=== PATIENT | male | born 1985 | race Caucasian/White ===

== ENCOUNTER → 2020-09-13 15:12 | Outpatient (BNVA) | payer BC, MEDICAID, SELFPAY | PROVIDERS: PCP Nurse Practitioner Family; Referring Provider Nurse Practitioner Family; Visit Provider Nurse Practitioner Family | DX: N39.0 Urinary tract infection, site not specified (principal); R39.82 Chronic bladder pain | CPT/HCPCS: 81003; 87086 ==

== ENCOUNTER → 2020-11-14 09:12 | Outpatient (BNVA) | payer BC, SELFPAY | PROVIDERS: PCP Nurse Practitioner Family; Visit Provider Urology | DX: N39.0 Urinary tract infection, site not specified (principal) | CPT/HCPCS: 81003 ==

== ENCOUNTER 2021-01-05 06:27 | Emergency (ER) | payer BC, MEDICAID, SELFPAY ==
[2021-01-05 06:30] VITALS: BP 134/64; PULSE 87; RESP 16; TEMP 36.6; O2SAT 99; BMI 36.6
--- NOTE | 2021-01-05 06:32 | W.ED.ABDPA2 ---
HPI - Abdominal Pain General: Chief Complaint: Abdominal Pain Stated Complaint: Abdominal Pain Time Seen by Provider: 01/05/21 06:29 History of Present Illness: HPI narrative: Ms Chang is a 35-year-old lady without significant past medical history presents emergency department due to recurrent abdominal pain. Symptom onset was without specific known provoking factor approximately 1 month ago. Initially she had epigastric pain however at times it migrates to the right upper quadrant. She seen her primary care provider and was trialed on PPI which has not provided significant relief. She has previously been evaluated at [facility] without obvious explanation for her symptoms. She has been referred for outpatient HIDA scan. She presents today due to more consistent and worse pain more in the right upper quadrant. Quality is sharp and aching. There is mild associated nausea but no vomiting. No other abdominal symptoms. She does have a history of tubal ligation, no other abdominal surgeries. No other known specific provoking, exacerbating, or relieving factors discussed. Review of Systems General: Reports: 10 or more systems reviewed and unremarkable except in HPI and below PFSH ED PFSH: Medical History Recurrent UTI Surgical History History of tubal ligation Family History Grandfather Cancer Social History Alcohol intake: current Alcohol intake frequency: holidays/special occasions only Marital status: Current occupational status: employed Physical Exam Narrative: EXAM NARRATIVE: GENERAL/CONSTITUTIONAL - well-appearing. Uncomfortable due to abdominal pain Eyes - PERRL, no conjunctival injection ENMT - Atraumatic external nose and ears. Moist mucous membranes NECK - supple. trachea midline CARDIOVASCULAR - regular rate and rhythm. RESPIRATORY -clear to auscultation bilaterally. No retractions or accessory muscle use. ABDOMEN/GI - tenderness palpation in the right upper quadrant, negative Barney's. No evidence of remote peritonitis or tenderness to percussion. MSK - Extremities without obvious deformity or tenderness to palpation SKIN - Warm, Dry NEURO - alert and appropriately oriented. Moves all extremities equally. Course ED course: - Patient was seen and evaluated by me at bedside - Patient placed on cardiac monitors, IV access obtained - Initial evaluation notable for abdominal exam as noted above, nontoxic. Uncomfortable. -Symptom treatment ordered - Labs notable for No leukocytosis. Transaminases and lipase normal. - Imaging notable for cholelithiasis without evidence of cholecystitis, common bile duct upper limits of normal. Given normal transaminases and lipase low clinical suspicion for stone in the bile duct - Discussed case with surgery on-call, no indication for pursuing HIDA scan prior to surgeon evaluation - Upon serial reexamination after treatment the patient was improved with symptomatic treatment - Based on patient history, evaluation, labs, and imaging as interpreted the most likely cause of the patient's condition is symptomatic cholelithiasis - The results of ED evaluation were discussed with the patient including prescriptions and/or symptomatic cares (if applicable) including appropriate and responsible use, followup plan, and return precautions. The patient verbalized understanding and felt safe for discharge. - Patient discharged in satisfactory condition. Vital Signs: Vital signs: Vital Signs Temperature 97.9 F 01/05/21 06:30 Pulse Rate 77 01/05/21 10:17 Respiratory Rate 17 01/05/21 11:12 Blood Pressure 126/60 01/05/21 11:12 Pulse Oximetry 100 01/05/21 11:12 MDM - Abdominal Pain Medical Records: Attestation: I reviewed the patient's medical records. Lab Data: Attestation: I reviewed the patient's lab results. Labs: Lab Results 01/05/21 01/05/21 01/05/21 06:56 06:56 07:16 WBC 6.7 10^3/uL 10^3/ uL (4.0-10.0) RBC 4.82 10^6/uL 10^6 /uL (4.1-5.3) Hgb 14.1 g/dL g/dL (11.5-15.3) Hct 41.3 % % (37.0-47.0) MCV 85.7 fl fl (81-99) MCH 29.3 pg pg (28.0-34.0) MCHC 34.1 g/dL g/dL (30.0-36.0) RDW 11.6 % L % (12.1-15.1) Plt Count 228 10^3/cmm 10^3 /cmm (130-400) MPV 10.6 fL H fL (7.4-10.4) Neut % (Auto) 69.0 % % Lymph % (Auto) 23.4 % % [place] % (Auto) 5.8 % % Eos % (Auto) 0.9 % % Baso % (Auto) 0.6 % % Neut # (Auto) 4.64 10^3/uL 10^3 /uL (1.8-7.7) Lymph # (Auto) 1.6 10^3/uL 10^3/ uL (0.8-4.8) [place] # (Auto) 0.4 10^3/uL 10^3/ uL (0.2-0.9) Eos # (Auto) 0.1 10^3/uL 10^3/ uL (0.0-0.8) Baso # (Auto) 0.0 10^3/uL 10^3/ uL (0.0-0.1) Nucleated RBC % (a uto) 0 % % Nucleated RBCs # 0.0 /100WBC /100W BC Sodium Potassium Chloride Carbon Dioxide Anion Gap BUN Creatinine GFR Calculation Glucose Calculated Osmolal ity Calcium Total Bilirubin AST ALT Alkaline Phosphata se Total Protein Albumin Globulin Lipase HCG, Qual Negative (Negative) Urine Color Yellow (Yellow) Urine Appearance Sl hazy (CLEAR) Urine pH 6 (5-7) Ur Specific Gravit y 1.020 (1.005-1.030) Urine Protein Neg (Negative) Urine Glucose (UA) Norm (Normal) Urine Ketones Negative (Negative) Urine Blood Neg (Negative) Urine Nitrate Negative (Negative) Urine Bilirubin 1+ H (Negative) Urine Urobilinogen 1 mg/dL H mg/dL (Negative) Ur Leukocyte Carmen ase Negative (Negative) Urine RBC None /hpf /hpf (0-2) Urine WBC 0-4 /hpf H /hpf (0-5) Ur Squamous Epith Cells 15-25 /hpf H /hpf (0-5) Amorphous Sediment Not Reportable Urine Bacteria 2+ /hpf H /hpf (NONE) Urine Mucus 2+ /hpf /hpf 01/05/21 07:16 WBC RBC Hgb Hct MCV MCH MCHC RDW Plt Count MPV Neut % (Auto) Lymph % (Auto) [place] % (Auto) Eos % (Auto) Baso % (Auto) Neut # (Auto) Lymph # (Auto) [place] # (Auto) Eos # (Auto) Baso # (Auto) Nucleated RBC % (a uto) Nucleated RBCs # Sodium 137 mmol/L mmol/L (136-145) Potassium 3.9 mmol/L mmol/L (3.5-5.1) Chloride 101 mmol/L mmol/L (98-107) Carbon Dioxide 26 mmol/L mmol/L (22-29) Anion Gap 13.9 (5-19) BUN 8 mg/dL mg/dL (6-20) Creatinine 0.5 mg/dL mg/dL (0.5-0.9) GFR Calculation 142.1 mL/min H mL /min (90-130) Glucose 96 mg/dL mg/dL (65-115) Calculated Osmolal ity 282 mOsm/kg L mOs m/kg (285-295) Calcium 9.2 mg/dL mg/dL (8.5-10.5) Total Bilirubin 0.4 mg/dL mg/dL (0.15-1.2) AST 16 U/L U/L (0-32) ALT 19 U/L U/L (0-33) Alkaline Phosphata se 111 IU/L H IU/L (35-105) Total Protein 7.1 g/dL g/dL (6.6-8.7) Albumin 4.4 g/dL g/dL (3.5-5.2) Globulin 2.7 g/dL g/dL (1.3-4.6) Lipase 16 U/L U/L (13-60) HCG, Qual Urine Color Urine Appearance Urine pH Ur Specific Gravit y Urine Protein Urine Glucose (UA) Urine Ketones Urine Blood Urine Nitrate Urine Bilirubin Urine Urobilinogen Ur Leukocyte Carmen ase Urine RBC Urine WBC Ur Squamous Epith Cells Amorphous Sediment Urine Bacteria Urine Mucus Discharge Plan Discharge Patient Disposition: Home Clinical Impression: Symptomatic cholelithiasis Condition: Stable Prescriptions: New ondansetron 4 mg tablet,disintegrating 4 mg PO TID PRN (Reason: nausea and vomiting) 5 Days Qty: 15 RF: 0 oxycodone 5 mg tablet 5 mg PO Q4H PRN (Reason: pain) Qty: 20 RF: 0 No Action nitrofurantoin monohyd/m-cryst [Macrobid] 100 mg capsule 100 mg PO BID Qty: 60 RF: 2 Discharge Orders: Discharge ED (Routine); Ordered 01/05/21 Ordered By: Lm Clarke Referrals: Lisa De La Vega ELEVATOR REPAIRER APPRENTICE [Primary Care Provider] - Discharge Diet: Advance as tolerated and Low Fat Discharge Activity: Resume usual activity Patient Instructions: Gallstones (ED), Opioid Safety Activity Restrictions/Additional Instructions: Thank you for visiting the emergency department. You were seen and evaluated for abdominal pain. You were found to have gallstones and biliary sludge without other evidence of cholecystitis. This still is likely causing your symptoms. This requires outpatient follow-up with surgery. Please follow-up with surgery and your primary care provider. Please return to the emergency department for worsening symptoms or anything else that you're concerned about and feel needs emergency department evaluation. Coding Level of Care Code ED Technology Assistant for Ann Marie Coronado
[2021-01-05 06:54] VITALS: BP 133/74; PULSE 72; RESP 17; O2SAT 100
--- NOTE | 2021-01-05 07:05 | USR_ITS ---
PROCEDURE INFORMATION: Exam: US Abdomen, Limited; Right Upper Quadrant Exam date and time: 01/05/2021 7:05 AM Age: 35 years old Clinical indication: Abdominal pain; Tenderness; Right upper quadrant (ruq); Additional info: Ruq, biliary TECHNIQUE: Imaging protocol: US abdomen. Real time ultrasound with image documentation. Limited exam focused on the right upper quadrant. COMPARISON: No relevant prior studies available. FINDINGS: Liver: Normal. No masses. Gallbladder: Intraluminal sludge interspersed with shadowing gallstones noted. A gallstone is noted at the gallbladder neck. No gallbladder wall thickening, distention, or pericholecystic fluid. Some general tenderness in the region of the right upper abdomen with no definite sonographic Barney sign according to performing technologist. Common bile duct: The common bile duct measures 6 mm at the upper limits of normal. Pancreas: Visualized pancreas is unremarkable. Right kidney: Normal. No mass. No hydronephrosis. US/US abdomen limited 35546 IMPRESSION: Sludge and cholelithiasis including a small stone at the gallbladder neck. No specific sonographic findings of acute cholecystitis. Radiation Dose CTDIVOL = (mGy): DLP = (mGy-cm)
[2021-01-05] MEDS: morphine 4 mg/mL SDV 1 mL IVP (07:13)
[2021-01-05] MEDS: ondansetron 2 mg/ML SDV 2 mL 4 MG IVP (07:13)
[2021-01-05 07:35] LABS: Basophils % 0.6 %; Eosinophils # 0.1 10^3/uL (0.0-0.8); Eosinophils % 0.9 %; Hematocrit 41.3 % (37.0-47.0); Hemoglobin 14.1 g/dL (11.5-15.3); Lymphocytes # 1.6 10^3/uL (0.8-4.8); Lymphocytes % 23.4 %; Mean Corpuscular HGB Conc 34.1 g/dL (30.0-36.0); Mean Corpuscular Hemoglobin 29.3 pg (28.0-34.0); Mean Corpuscular Volume 85.7 fl (81-99); Mean Platelet Volume 10.6 fL (7.4-10.4); Monocytes # 0.4 10^3/uL (0.2-0.9); Monocytes % 5.8 %; Neutrophils # 4.64 10^3/uL (1.8-7.7); Nucleated Red Blood Cells % 0 %; Platelet Count 228 10^3/cmm (130-400); Red Blood Count 4.82 10^6/uL (4.1-5.3); Red Cell Distribution Width 11.6 % (12.1-15.1); White Blood Count 6.7 10^3/uL (4.0-10.0)
[2021-01-05 07:42] LABS: HCG Qualitative Urine. Negative (Negative)
[2021-01-05 08:02] LABS: Alanine Aminotransferase 19 U/L (0-33); Albumin Level 4.4 g/dL (3.5-5.2); Alkaline Phosphatase 111 IU/L (35-105); Aspartate Amino Transferase 16 U/L (0-32); Blood Urea Nitrogen 8 mg/dL (6-20); Calcium 9.2 mg/dL (8.5-10.5); Carbon Dioxide 26 mmol/L (22-29); Chloride 101 mmol/L (98-107); Globulin 2.7 g/dL (1.3-4.6); Glomerular Filtration Rate 142.1 mL/min (90-130); Glucose 96 mg/dL (65-115); Lipase 16 U/L (13-60); Osmolality Calculated 282 mOsm/kg (285-295); Sodium 137 mmol/L (136-145); Total Bilirubin 0.4 mg/dL (0.15-1.2); Total Protein 7.1 g/dL (6.6-8.7)
[2021-01-05 08:05] LABS: Add Urine Microscopic? YES; Bacteria Urine 2+ /hpf; Bilirubin Urine 1+ (Negative); Blood Urine Neg (Negative); Glucose Urine UA Norm (Normal); Ketones Urine Negative (Negative); Leukocyte Esterase Urine Negative (Negative); Mucus Urine 2+ /hpf; Nitrate Urine Negative (Negative); Protein Urine Neg (Negative); Squamous Epithelial Cell Urine 15-25 /hpf (0-5); Urine Appearance SL Hazy (CLEAR); Urine Color Yellow (Yellow); Urobilinogen Urine 1 mg/dL (Negative); WBC Urine 0-4 /hpf (0-5); pH Urine 6 (5-7)
[2021-01-05 08:07] LABS: Add Urine Culture? No
[2021-01-05 08:09] LABS: Anion Gap 13.9 (5-19); Potassium 3.9 mmol/L (3.5-5.1)
[2021-01-05 08:21] VITALS: RESP 16; O2SAT 98
[2021-01-05 10:17] VITALS: BP 126/60; PULSE 77; RESP 16; O2SAT 100
[2021-01-05 11:12] VITALS: BP 126/60; RESP 17; O2SAT 100
--- NOTE | 2021-01-07 11:24 | DCPLANNER ---
hotel service manager had message to schedule a follow up appointment for patient with general surgery. hotel service manager emailed patients information to both Teresa and Emily at [facility] General Surgery / ENT clinic. Patients information will be printed and reviewed. Clinic will call patient with appointment information.
--- NOTE | 2021-01-08 16:01 | DCPLANNER ---
Patient had a follow up appointment scheduled for 01.08.[address] Young at general surgery - patient did attend appointment.
== END 2021-01-05 11:14 | disposition home or self-care (01) ==
PROVIDERS: Emergency Provider Emergency Medicine; PCP Nurse Practitioner Family
DX: K80.20 Calculus of gallbladder without cholecystitis without obstruction (principal)
CPT/HCPCS: 76705; 80053; 81001; 81025; 83690; 85025; 96374; 96375; 99284; J2270; J2405

== ENCOUNTER → 2021-01-09 10:55 | Outpatient (BNVA) | payer BC, SELFPAY | PROVIDERS: PCP Nurse Practitioner Family; Visit Provider Urology | DX: N39.0 Urinary tract infection, site not specified (principal) | CPT/HCPCS: 81003 ==

== ENCOUNTER → 2021-01-11 08:34 | Outpatient (BNVA) | payer BC, SELFPAY | PROVIDERS: PCP Nurse Practitioner Family; Visit Provider Surgery | DX: Z20.822 Contact with and (suspected) exposure to COVID-19 (principal) | CPT/HCPCS: 87635 ==

== ENCOUNTER 2021-01-16 07:56 | Day surgery (SDC) | payer BC, MEDICAID, SELFPAY ==
[2021-01-15 15:53] VITALS: BMI 37.4
[2021-01-16] VITALS (10 sets, daily range): BP systolic 104–127; BP diastolic 57–76; PULSE 61–85; RESP 14–18; TEMP 36.1–36.7; O2SAT 96–100
[2021-01-16] MEDS: sodium chloride 0.9% 1,000 ML 30 ML IV (08:27)
[2021-01-16 08:31] LABS: OR HCG Qualitative Urine Negative (Negative)
--- NOTE | 2021-01-16 08:44 | W.PM.OPSUD ---
Surgery/Procedure H&P Update DATE OF PROCEDURE: January 16, 2021 DATE H&P PERFORMED: 01/08/21 H&P UPDATE INFORMATION: I have reviewed H&P completed within last 30 days, I have examined patient prior to procedure and No changes to prior documentation PREOP DIAGNOSIS: Cholelithiasis PLANNED PROCEDURE: Operation Date: 01/16/21 09:25 Proposed Procedures p Laparoscopic Cholecystectomy 29174 K80.20(Not Applicable) - Catrachito Young MD
--- NOTE | 2021-01-16 08:48 | ANES.PREANE2 ---
Pre-Anesthetic Assessment Pre-Anesthetic Assessment: Height/Weight: Height 1.65 m Weight 102.058 kg Temp Pulse Resp BP Pulse Ox 97.7 F 64 16 127/57 99 01/16/21 08:17 01/16/21 08:17 01/16/21 08:17 01/16/21 08:17 01/16/21 08:17 Preop Diagnosis: Cholelithiasis Proposed Procedure: Operation Date: 01/16/21 09:25 Proposed Procedures p Laparoscopic Cholecystectomy 22327 K80.20(Not Applicable) - Catrachito Young MD Was Beta Alonso taken within 24 hours: N/A Was Clonidine taken within 24 hours: N/A Last intake: Intake Last Liquid Date 01/15/21 Last Liquid Time 19:30 Last Solid Date 01/15/21 Last Solid Time 19:30 Social: Social History: No alcohol and No tobacco Exam: Pre-Anes Outpt Exam: alert, oriented x 3, clear to auscultation bilaterally and regular rate & rhythm Airway: Submandibular: WNL Cervical ROM: WNL MP: 2 Dentition: Full History/ROS: No significant history except as noted Metabolic: Metabolic: Morbid obesity Anesthetic Plan: ASA status: 2 Anesthesia: General Risk of > 500 ml blood loss (7ml/kg in children): No Meds/Allergies Current Medications: Current Medications Generic Name Dose Route Start Last Admin Trade Name Freq PRN Reason Stop Dose Admin Sodium Chloride 1,000 mls @ 30 ml s/hr 01/16/21 08:15 01/16/21 08:27 Sodium Chloride 0.9% IV 01/17/21 08:14 30 mls/hr .Q24H ZA Administration PFSH Anesthesia PFSH: Medical History Recurrent UTI Surgical History History of tubal ligation Family History Grandfather Cancer Social History Alcohol intake: current Alcohol intake frequency: holidays/special occasions only Marital status: Current occupational status: employed Female Reproductive History: Date of last menstrual period: 12/28/20 Data Anesthesia Other Labs: Laboratory Results - last 48 hr 12/01/21 08:11 Urine HCG, Qual Negative Cardiac Studies: No Data to Display
--- NOTE | 2021-01-16 09:39 | PM.OP ---
Operative Report Date of procedure: January 16, 2021 Pre-op Diagnosis: Cholelithiasis Post-op diagnosis: same Procedure Done: Laparoscopic cholecystectomy Specimens removed/disposition: Gallbladder Surgeon: Catrachito Young Anesthesia: General Condition: stable Disposition: PACU Procedure: The patient was taken to the operating room and was intubated under general anesthesia. After the antibiotic had been administered, the abdomen was prepped and draped in a sterile manner. Using a #15 blade, a 1 centimeter infraumbilical curvilinear incision was made and using an open Holley technique the peritoneal cavity was entered. A 10 millimeter port was placed and 15 millimeters of pneumoperitoneum was created. A 10 millimeter, 30 degrees scope was then introduced. Three 5 millimeter ports were placed in the epigastric, midclavicular and the anterior axillary line two fingerbreadths below the costal margin on the right side under the direct visualization. Ratcheted forceps were introduced into the lateral most port and was used to retract the fundus of the gallbladder cephalad and using forceps the infundibulum of the gallbladder was retracted laterally. Using L-hook cautery the peritoneum overlying the Calot's triangle was opened medially and laterally until the cystic duct and the anterior and posterior branch of cystic artery were skeletonized. Dissection was carried along the body of the gallbladder and after ensuring critical view of safety, 4 clips applied on the cystic duct and 3 clips applied on the anterior and posterior branch of cystic artery and cut leaving, 3 clips on the remaining portion of the duct and 2 clips on the remaining portion of the artery. The rest of the gallbladder was dissected off the liver using L-hook cautery. There was no bleeding or bile leaking noted from the gallbladder fossa and the clips appeared to be in place. An EndoCatch bag was introduced to remove the gallbladder. All the ports were removed under direct visualization and there was no bleeding noted from the port sites. The fascia of the umbilicus was closed using [id number] Vicryl sutures and the subcutaneous tissue was approximated using 3-0 Vicryl sutures. The skin at all four ports were closed using 4-0 Monocryl and Dermabond. A total of 10 millimeters of 0.5% Marcaine was infiltrated around the port sites. The patient was extubated and transferred to recovery room in stable condition.
[2021-01-16] MEDS: fentaNYL 50 mcg/mL INJ 2mL IVP (10:08)
[2021-01-16] MEDS: ondansetron 2 mg/ML SDV 2 mL 4 MG IVP (10:17)
[2021-01-16] MEDS: HYDROcodone-acetaminophen 5-325 mg Tablet 1 TAB PO (10:36)
--- NOTE | 2021-01-16 13:21 | ANE.PACU2 ---
Inpatient post-anesthesia follow up: Airway intact: Yes Vital signs: Temperature 98.1 F Pulse Rate 61 Respiratory Rate 16 Blood Pressure 111/65 Pulse Oximetry 99 Oxygen Delivery Me thod Room Air Oxygen Flow Rate 8 Fraction of Inspir ed Oxygen Hydration adequate: Yes Nausea and vomiting: No Pain level: 2 Mental status: Baseline
== END 2021-01-16 11:50 | disposition home or self-care (01) ==
PROVIDERS: PCP Nurse Practitioner Family; Visit Provider Surgery
PROC: 0FT44ZZ Resection of Gallbladder, Percutaneous Endoscopic Approach (ICD-10-PCS; CPT 47562; principal; 2021-01-16 09:25)
DX: K80.10 Calculus of gallbladder with chronic cholecystitis without obstruction (principal); E66.01 Morbid (severe) obesity due to excess calories; Z68.37 Body mass index [BMI] 37.0-37.9, adult
CPT/HCPCS: 47562; 81025; 84703; 88304; J0690; J1100; J2250; J2405; J2704; J2710; J3010; J3490; J7030

== ENCOUNTER → 2021-03-12 12:23 | Outpatient (BNVA) | payer BC, MEDICAID, SELFPAY | PROVIDERS: PCP Nurse Practitioner Family; Visit Provider Urology | DX: N30.20 Other chronic cystitis without hematuria (principal) | CPT/HCPCS: 81003; 87086 ==

== ENCOUNTER → 2021-07-22 16:38 | Outpatient (BNVA) | payer BC, MEDICAID, SELFPAY | PROVIDERS: PCP Nurse Practitioner Family; Visit Provider Urology | DX: N39.0 Urinary tract infection, site not specified (principal) | CPT/HCPCS: 81003 ==

== ENCOUNTER → 2022-02-03 13:17 | Outpatient (BNVA) | payer BC, MEDICAID, SELFPAY | PROVIDERS: PCP Registered Nurse; Visit Provider Urology | DX: N30.20 Other chronic cystitis without hematuria (principal) | CPT/HCPCS: 81003 ==